=== PATIENT | female | born 1945 | race Caucasian/White ===

== ENCOUNTER → 2020-02-18 10:35 | Outpatient (CLI) | payer MEDICARE, SELFPAY | PROVIDERS: PCP Nurse Practitioner Family; Referring Provider Nurse Practitioner Family; Visit Provider Nurse Practitioner Family | DX: U07.1 COVID-19 (principal); R43.2 Parageusia; R43.0 Anosmia | CPT/HCPCS: 87633; 87635; C9803; U0005; U0003 ==

== ENCOUNTER → 2023-03-02 | Outpatient (CLI) | payer MEDICARE, SELFPAY ==
--- NOTE | 2023-03-02 14:58 | CDU_ITS ---
Reason For Study: carotid stenosis Rt. Velocities/BP Lt. Velocities/BP Prox CCA 76.8/10.7 cm/sec. Prox CCA 71.1/13.5 cm/sec. Mid CCA 47.5/10.7 cm/sec. Mid CCA 50.4/10.7 cm/sec. Dist CCA 49.4/12.6 cm/sec. Dist CCA 48.5/12.6 cm/sec. Prox ICA 46.6/14.5 cm/sec. Prox ICA 50.7/12.6 cm/sec. Mid ICA 56.0/16.3 cm/sec. Mid ICA 53.2/15.1 cm/sec. Dist ICA 66.4/16.3 cm/sec. Dist ICA 60.5/20.0 cm/sec. Rt. ICA/CCA = 1.4. Lt. ICA/CCA = 1.2. Prox ECA 60.7/9.7 cm/sec. Prox ECA 113.3/13.9 cm/sec. Rt. Vert. 47.5/8.8 cm/sec. Lt. Vert. 40.9/11.4 cm/sec. Right Extracranial There is homogeneous, smooth atherosclerotic plaque noted in the right common carotid artery. There is heterogeneous, irregular atherosclerotic plaque noted in the right internal carotid artery. There is homogeneous, smooth atherosclerotic plaque noted in the right external carotid artery. Antegrade flow is noted in the right vertebral artery. Left Extracranial There is homogeneous, smooth atherosclerotic plaque noted in the left common carotid artery. There is heterogeneous, irregular atherosclerotic plaque noted in the left internal carotid artery. There is homogeneous, smooth atherosclerotic plaque noted in the left external carotid artery. Antegrade flow is noted in the left vertebral artery. Procedure Carotid Duplex 35302. This is a Carotid Duplex examination using B-mode, color flow and specral Doppler. The exam was diagnostic. The study was technically difficult. Exam performed in department. VL/Carotid Duplex Ultrasound Interpretation Summary Mild (<50%) stenosis right extracranial internal carotid. Mild (<50%) stenosis left extracranial internal carotid. Flow within the vertebral arteries is antegrade bilaterally. Ordering Physician: Collin Pulliam Performed By: Ky Cameron RVT
--- OUTSIDE RECORDS SUMMARY | 2023-03-02 15:22 | XMS RPT_ITS | CCD ---
Author Name Unknown Address [id number] [place] [address] Organization [facility] Care Team Providers Care Agricultural Technical Officer Name Role Phone MARY Rivera CNP, CODIE Jones Primary [facility] MARY APARICIO - MANJEET, CODIE Jones Attending U navailable MARY PRINTING MACHINE MECHANIC - JAVA TECHNICAL MANAGER, CODIE Jones Primary Care U navailable MARY PRINTING MACHINE MECHANIC - JAVA TECHNICAL MANAGER, CODIE Jones Primary Care U navailable FISH PRINTING MACHINE MECHANIC-JAVA TECHNICAL MANAGER, SRINIVAS Attending Unavailab le MARY PRINTING MACHINE MECHANIC - JAVA TECHNICAL MANAGER, CODIE Jones Primary Care U navailable FISH PRINTING MACHINE MECHANIC-JAVA TECHNICAL MANAGER, SRINIVAS Attending Unavailab le MARY PRINTING MACHINE MECHANIC - JAVA TECHNICAL MANAGER, CODIE Jones Primary Care U navailable FISH PRINTING MACHINE MECHANIC-JAVA TECHNICAL MANAGER, SRINIVAS Attending Unavailab le MARY PRINTING MACHINE MECHANIC - JAVA TECHNICAL MANAGER, CODIE Jones Primary Care U navailable MARY PRINTING MACHINE MECHANIC - JAVA TECHNICAL MANAGER, CODIE Jones Attending U navailable MARY PRINTING MACHINE MECHANIC - JAVA TECHNICAL MANAGER, CODIE Jones Primary Care U navailable MARY PRINTING MACHINE MECHANIC - JAVA TECHNICAL MANAGER, CODIE Jones Attending U navailable Allergies Allergy Classification Reported Allergen(s) Allergy Type Date of Onset Reaction(s) Facility (2 sources) Amoxicillin; Translations: [amoxicillin] Drug Allergy Itching (finding) [facility] (3 sources) Penicillin; Translations: [penicillins] Drug Allergy Itching (finding) [facility] Medications Current Medications Medication Drug Class(es) Dates Sig (Normalized) Sig (Original) amLODIPine 5 mg oral tablet (3 sources) Dihydropyridine Calcium Channel Rodney Start: 05-02-2022 End: 01-27-2023 amLODIPine 5 mg oral tablet Dose : 5 mg = 1 tab(s), Oral, qDay, X 90 day(s), # 90 tab(s), 1 Refill(s), 11/15/22 15:23:00 EDT, Pharmacy: [facility], HTN, goal below 140/90, 160, cm, 05/19/22 14:04:00 EDT, Height, kg, 05/19/22 14:04:00 EDT, Dosing Weight Start Date: 05/19/22 Stop Date: 11/15/22 Status: Ordered Problems Problem Classification Problem Date Documented Date Episodic/Chronic Administrative/socia l admission (4 sources) Monitoring status 09-02-2021 Episodic Aortic; peripheral; and visceral artery aneurysms (4 sources) Aortic root dilatation 05-10-2021 Chronic Chronic kidney disease (7 sources) Chronic kidney disease; Translations: [Chronic kidney disease, unspecified] Onset: 11-17-2022 04-18-2019 Chronic Conduction disorders (4 sources) Atrioventricular block; Translations: [Ventricular bigeminy] 11-25-2022 Chronic Results Test Name Value Interpretation Reference Range Facil ity Encounters Encounter Date Encounter Type Care Provider Facility Start: 02-16-2023 ambulatory CODIE LUONG PRINTING MACHINE MECHANIC - JAVA TECHNICAL MANAGER Facility:B Start: 12-30-2022 End: 12-31-2022 ambulatory CODIE HERNANDEZ PRINTING MACHINE MECHANIC - JAVA TECHNICAL MANAGER Facility:[facility] Start: 12-30-2022 End: 12-30-2022 Patient encounter procedure SRINIVAS PALMA PRINTING MACHINE MECHANIC-JAVA TECHNICAL MANAGER [facility] Start: 11-28-2022 End: 11-29-2022 ambulatory CODIE HERNANDEZ PRINTING MACHINE MECHANIC - JAVA TECHNICAL MANAGER Facility:[facility] Start: 11-28-2022 End: 11-28-2022 Patient encounter procedure CODIE HERNANDEZ PRINTING MACHINE MECHANIC - JAVA TECHNICAL MANAGER [facility] Start: 11-17-2022 End: 11-22-2022 ambulatory CODIE HERNANDEZ PRINTING MACHINE MECHANIC - JAVA TECHNICAL MANAGER Facility:[facility] Start: 05-27-2022 End: 05-28-2022 ambulatory CODIE HERNANDEZ PRINTING MACHINE MECHANIC - JAVA TECHNICAL MANAGER Facility:[facility] Start: 05-27-2022 End: 05-27-2022 Patient encounter procedure CODIE HERNANDEZ PRINTING MACHINE MECHANIC - JAVA TECHNICAL MANAGER [facility] Start: 05-11-2022 End: 05-12-2022 ambulatory CODIE HERNANDEZ PRINTING MACHINE MECHANIC - JAVA TECHNICAL MANAGER Facility:[facility] Start: 05-11-2022 End: 05-11-2022 Patient encounter procedure SRINIVAS PALMA PRINTING MACHINE MECHANIC-JAVA TECHNICAL MANAGER [facility] Start: 04-19-2021 End: 04-19-2021 Patient encounter procedure SRINIVAS PALMA PRINTING MACHINE MECHANIC-JAVA TECHNICAL MANAGER [facility] Procedures Date Procedure Procedure Detail Performing Clinician Start: 05-04-2018 Echocardiography KATHERINE PALMA PRINTING MACHINE MECHANIC-JAVA TECHNICAL MANAGER Immunizations Immunization Date Immunization Notes Care Provider [facility] 11-25-2022 influenza, high dose seasonal, preservative-free; Translations: [Fluad Quadrivalent PF ] CODIE MARY PRINTING MACHINE MECHANIC - JAVA TECHNICAL MANAGER [facility] [place] 12-03-2021 influenza, high dose seasonal, preservative-free SRINIVASYOU PALMA PRINTING MACHINE MECHANIC-JAVA TECHNICAL MANAGER [facility] [place] 02-27-2021 SARS-CoV-2 (COVID-19 ) mRNA-1273 vaccine SRINIVAS PALMA PRINTING MACHINE MECHANIC-JAVA TECHNICAL MANAGER [facility] [place] 12-21-2020 influenza, high dose seasonal, preservative-free; Translations: [Fluad Quadrivalent PF ] SRINIVAS PALMA PRINTING MACHINE MECHANIC-JAVA TECHNICAL MANAGER [facility] 05-21-2020 COVID-19, mRNA, LNP- S, PF, 100 mcg or 50 mcg dose; Translations: [Moderna COVID-19 Vaccine] SRINIVAS LOUIE PRINTING MACHINE MECHANIC-JAVA TECHNICAL MANAGER [facility] 04-23-2020 COVID-19, mRNA, LNP- S, PF, 100 mcg or 50 mcg dose; Translations: [Moderna COVID-19 Vaccine] SRINIVAS LOUIE PRINTING MACHINE MECHANIC-JAVA TECHNICAL MANAGER [facility] 11-01-2018 influenza, injectabl e, quadrivalent, preservative free; Translations: [Fluarix PF Quadrivalent ] SRINIVAS LOUIE PRINTING MACHINE MECHANIC-JAVA TECHNICAL MANAGER [facility] 11-12-2017 influenza virus vacc ine, unspecified formulation SRINIVAS LOUIE PRINTING MACHINE MECHANIC-JAVA TECHNICAL MANAGER [facility] 10-24-2016 influenza virus vacc ine, unspecified formulation SRINIVAS LOUIE PRINTING MACHINE MECHANIC-JAVA TECHNICAL MANAGER [facility] 12-08-2015 zoster vaccine, live SRINIVAS PALMA PRINTING MACHINE MECHANIC-JAVA TECHNICAL MANAGER [facility] 11-08-2015 influenza virus vacc ine, unspecified formulation SRINIVAS LOUIE PRINTING MACHINE MECHANIC-JAVA TECHNICAL MANAGER [facility] 12-04-2014 pneumococcal conjuga te vaccine, 13 valent SRINIVAS LOUIE PRINTING MACHINE MECHANIC-JAVA TECHNICAL MANAGER [facility] 11-13-2014 influenza virus vacc ine, unspecified formulation SRINIVAS [employer] PRINTING MACHINE MECHANIC-JAVA TECHNICAL MANAGER [facility] 10-30-2013 influenza virus vacc ine, unspecified formulation SRINIVAS PALMA PRINTING MACHINE MECHANIC-JAVA TECHNICAL MANAGER [facility] 11-27-2012 influenza virus vacc ine, unspecified formulation SRINIVAS PALMA PRINTING MACHINE MECHANIC-JAVA TECHNICAL MANAGER [facility] 12-08-2011 pneumococcal polysaccharide vaccine, 23 valent SRINIVAS PALMA PRINTING MACHINE MECHANIC-JAVA TECHNICAL MANAGER [facility] 11-14-2011 influenza virus vacc ine, unspecified formulation SRINIVAS PALMA PRINTING MACHINE MECHANIC-JAVA TECHNICAL MANAGER [facility] 09-22-2006 tetanus toxoid, redu teri diphtheria toxoid, and acellular pertussis vaccine, adsorbed SRINIVASYOU PALMA PRINTING MACHINE MECHANIC-JAVA TECHNICAL MANAGER [facility] Payers Date Payer Category Payer Private Health Insurance [id number] 1945 Unknown [id number] [id number] 1945 Unknown [id number] [id number] 1945 Unknown [id number] [id number] [id number] 1945 Unknown [id number] [id number] [id number] 1945 Unknown [id number] [id number] [id number] 1945 Unknown [id number] [id number] [id number] Social History Date Type Detail Facility Start: 10-31-2019 Never smoked tobacco (f inding) [facility] Evaluation + Plan note Laboratory Note Date & Type Note Facility Evaluation + Plan note Future Appointments Appointment Date:04/22/2021 11:30:00 AM Scheduled Provider: Location:[facility] Appointment Type:PC Nurse Lab Appointment Date:04/30/2021 02:20:00 PM Scheduled Provider:CODIE HERNANDEZ APRN, CNP Location:[facility] Appointment Type:PC OV Appointment Date:05/05/2021 09:00:00 AM Scheduled Provider:SRINIVAS PALMA Location:[facility] Appointment Type:CV OV Future Scheduled TestsComplete Blood Count 04/25/21Complete Blood Count 10/21/20Lipid Profile 04/25/21Lipid Profile 10/21/20Vitamin D Level 04/25/21Vitamin D Level 10/21/20Complete Metabolic Panel 04/25/21Complete Metabolic Panel 10/21/20 [facility] Evaluation + Plan note Laboratory Note Date & Type Note Facility Evaluation + Plan note Future Appointments Appointment Date:05/19/2022 02:00:00 PM Scheduled Provider:CODIE HERNANDEZ APRN, CNP Location[facility] Appointment Type:PC OV Follow Up Appointment Date:05/23/2022 01:00:00 PM Scheduled Provider:SRINIVAS PALMA Location:[facility] Appointment Type:CV OV Appointment Date:05/31/2022 11:30:00 AM Scheduled Provider: Location:[facility] Appointment Type:PC Nurse Protime Future Scheduled TestsComplete Blood Count 04/25/21Lipid Profile 04/25/21Microalbumin Level Urine 05/05/22Microalbumin Level Urine 11/03/21Vitamin D Level 04/25/21Complete Metabolic Panel 04/25/21 [facility] Evaluation + Plan note Laboratory Note Date & Type Note Facility Evaluation + Plan note Future Appointments Appointment Date:05/31/2022 11:30:00 AM Scheduled Provider: Location:[facility] Appointment Type:PC Nurse Protime Appointment Date:11/17/2022 08:15:00 AM Scheduled Provider: Location:[facility] Appointment Type:PC Nurse Lab Appointment Date:11/21/2022 10:30:00 AM Scheduled Provider:SRINIVAS PALMA Location[facility] Appointment Type:CV OV Appointment Date:11/25/2022 10:20:00 AM Scheduled Provider:CODIE HERNANDEZ APRN, CNP Location:[facility] Appointment Type:PC OV Follow Up Future Scheduled TestsComplete Blood Count 11/18/22Lipid Profile 11/18/22Albumin/Creatinine Ratio, Random Urine 11/18/22Microalbumin Level Urine 05/05/22Microalbumin Level Urine 11/03/21Vitamin D Level 11/18/22Complete Metabolic Panel 11/18/22 [facility] Evaluation + Plan note Laboratory Note Date & Type Note Facility Evaluation + Plan note Future Appointments Appointment Date:12/01/2022 01:30:00 PM Scheduled Provider: Location:[facility] Appointment Type:CV OV Appointment Date:12/23/2022 10:00:00 AM Scheduled Provider: Location:[facility] Appointment Type:PC Nurse Protime Appointment Date:05/18/2023 08:30:00 AM Scheduled Provider: Location:[facility] Appointment Type:PC Nurse Lab Appointment Date:05/26/2023 10:20:00 AM Scheduled Provider:CODIE HERNANDEZ APRN, CNP Location:[facility] Appointment Type:PC OV Appointment Date:06/15/2023 01:00:00 PM Scheduled Provider: Location:[facility] Appointment Type:CV OV Future Scheduled TestsRenin, Plasma 05/27/23Iron Level 05/27/23Complete Blood Count 05/27/23Lipid Profile 05/27/23Albumin/Creatinine Ratio, Random Urine 05/27/23PTH, Intact 05/27/23Vitamin D Level 05/27/23Complete Metabolic Panel 05/27/23TIBC 05/27/23 [facility] Evaluation + Plan note Laboratory Note Date & Type Note Facility Evaluation + Plan note Future Appointments Appointment Date:01/17/2023 02:00:00 PM Scheduled Provider:SRINIVAS PALMA Location:[facility] Appointment Type:CV OV Appointment Date:01/20/2023 10:30:00 AM Scheduled Provider: Location:[facility] Appointment Type:PC Nurse Protime Appointment Date:05/18/2023 08:30:00 AM Scheduled Provider: Location:[facility] Appointment Type:PC Nurse Lab Appointment Date:05/26/2023 10:20:00 AM Scheduled Provider:CODIE HERNANDEZ APRN, CNP Location:[facility] Appointment Type:PC OV Appointment Date:06/15/2023 01:00:00 PM Scheduled Provider: Location:[facility] Appointment Type:CV OV Future Scheduled TestsRenin, Plasma 05/27/23Iron Level 05/27/23Complete Blood Count 05/27/23Lipid Profile 05/27/23Albumin/Creatinine Ratio, Random Urine 05/27/23PTH, Intact 05/27/23Vitamin D Level 05/27/23Complete Metabolic Panel 05/27/23TIBC 05/27/23 [facility] Hospital course Narrative Note Date & Type Note Facility Hospital course Narrative No data available for this section [facility] Hospital Discharge instructions Note Date & Type Note Facility Hospital Discharge instructions No data available for this section [facility] Note Note Date & Type Note Facility Note JOSE ALLEN MD: SIGN, VERIFY Event Display: VL Carotid US/Doppler Complete [facility] Progress note Note Date & Type Note Facility Progress note No data available for this section [facility] Summary Purpose Family History No Family History Records Found Advance Directives No Advanced Directives Records Found Additional Source Comments Patient Care team informatio n (unrecognized section and content) Care Team Personnel Name: CODIE HERNANDEZ APRN, CNP Position: [facility] Advanced Pricing Director Member Role: Primary Care Physician Address: Address: [address] [place] [address]- Care Team Related Persons Name: KARTHIKEYAN GONZALEZ Name: RINMINNIE SCOTTY Care Team Personnel Name: MARYCODIE ROSAS APRN - JAVA TECHNICAL MANAGER Position: [facility] Advanced Pricing Director Member Role: Primary Care Physician Address: Address: [address] [place] [address] Care Team Related Persons Name: KARTHIKEYAN GONZALEZ Name: PER GONZALEZ Care Team Personnel Name: MARYCODIE PRINTING MACHINE MECHANIC - JAVA TECHNICAL MANAGER Position: [facility] Advanced Pricing Director Member Role: Primary Care Physician Address: Address: [address] [place] [address] Care Team Related Persons Name: KARTHIKEYAN GONZALEZ Name: MINNIE GONZALEZY Care Team Personnel Name: MARYCODIE ROSAS APRN - JAVA TECHNICAL MANAGER Position: [facility] Advanced Pricing Director Member Role: Primary Care Physician Address: Address: [address] [place] [address] Care Team Related Persons Name: KARTHIKEYAN GONZALEZ Name: PER GONZALEZ INFORMATION SOURCE (unrecogn ized section and content) FOR RECORDS PERTAINING TO PATIENTS WHO ARE OR HAVE BEEN ENROLLED IN A CHEMICAL DEPENDENCY/SUBSTANCEABUSE PROGRAM, SOME INFORMATION MAY BE OMITTED. This clinical summary was aggregated from multiple sources. Caution should be exercised in using it in the provision of clinical care. This summary normalizes information from multiple sources, and as a consequence, information in this document may materially change the coding, format and clinical context of patient data. In addition, data may be omitted in some cases. CLINICAL DECISIONS SHOULD BE BASED ON THE PRIMARY CLINICAL RECORDS. [facility]. provides no warranty or guarantee of the accuracy or completeness of information in this document.
== END | disposition home or self-care (01) ==
LOC: CVS 14:57
PROVIDERS: PCP Nurse Practitioner Family; Referring Provider Surgery Vascular Surgery; Visit Provider Surgery Vascular Surgery
DX: I65.23 Occlusion and stenosis of bilateral carotid arteries (principal)
CPT/HCPCS: 93880

== ENCOUNTER → 2024-06-10 | Outpatient (CLI) | payer MEDICARE, SELFPAY ==
--- NOTE | 2024-06-10 07:59 | CT_ITS ---
PROCEDURE: SINUS/FACIAL BONE REASON FOR EXAM: CHRONIC SINUSITIS TECHNIQUE: CT of the paranasal sinuses without contrast. Coronal and Sagittal reconstruction series were provided. One or more dose reduction techniques were used (e.g., Automated exposure control, adjustment of the mA and/or kV according to patient size, use of iterative reconstruction technique). COMPARISON: None. FINDINGS: Frontal: Clear Ethmoid: There is opacification of the portion of the right ethmoid air cells. Sphenoid: Clear Maxillary: There 0.5 cm mucosal thickening in the floor of the left maxillary sinus, 0.3 cm mucosal thickening in the floor of the right maxillary sinus. Turbinates: Intact Nasal Septum: Midline Mastoids/Middle Ears: Clear Dental hardware is noted. CT/Sinus/Facial Bone IMPRESSION: There is opacification of the portion of the right ethmoid air cells. There 0.5 cm mucosal thickening in the floor of the left maxillary sinus, 0.3 c m mucosal thickening in the floor of the right maxillary sinus. Reading Location: [facility]
== END | disposition home or self-care (01) ==
PROVIDERS: PCP Nurse Practitioner Family; Referring Provider Otolaryngology Otolaryngology/Facial Plastic Surgery; Visit Provider Otolaryngology Otolaryngology/Facial Plastic Surgery
DX: J32.9 Chronic sinusitis, unspecified (principal); J30.9 Allergic rhinitis, unspecified
CPT/HCPCS: 70486